=== PATIENT | female | born 1970 | race Caucasian/White ===

== ENCOUNTER 2018-10-31 05:29 | Emergency (ER) | payer BC ==
[2018-10-31 05:45] VITALS: BP 106/72
== END 2018-10-31 06:30 | disposition left against medical advice (07) ==
LOC: ER 05:29
DX: Z53.21 Procedure and treatment not carried out due to patient leaving prior to being seen by health care provider (principal)

== ENCOUNTER 2018-11-01 18:27 | Emergency (ER) | payer SELFPAY ==
--- NOTE | 2018-11-01 19:29 | EKG REPORT ---
SEVERITY:- ABNORMAL ECG - SINUS RHYTHM PROBABLE LEFT ATRIAL ABNORMALITY NONSPECIFIC INTRAVENTRICULAR CONDUCTION DELAY : Confirmed by: Dannielle Dexter MD 01-Nov-2018 19:28:44
[2018-11-01] MEDS ORDERED: ASPIRIN 81 MG TABLET, CHEWABLE PO ONE (21:12)
--- NOTE | 2018-11-01 21:15 | ER Document Report ---
ED Medical Screen (RME) - General Chief Complaint: Chest Pain Stated Complaint: CHEST PRESSURE Time Seen by Provider: 11/01/18 21:12 Notes: Patient is a otherwise healthy 47-year-old female presents the emergency department for generalized chest pressure that started this morning. patient describes it as a chest pressure over the center of her chest. Patient states she felt similar to this when she was diagnosed with bronchitis but she was diagnosed with bronchitis she had a generalized cough and congestion. Patient's denying any URI symptoms at this time. Denying any fever. Patient denies that the pressure gets better or worse with deep inspiration, coughing, movement. Patient denies any history of hypertension, hyperlipidemia, diabetes, smoking. GENERAL: Alert, interacts well. No acute distress. LUNGS: Clear to auscultation bilaterally, no wheezes, rales, or rhonchi. No respiratory distress. HEART: Regular rate and rhythm. No murmur I have greeted and performed a rapid initial assessment of this patient. A comprehensive ED assessment and evaluation of the patient, analysis of test results and completion of the medical decision making process will be conducted by additional ED providers. TRAVEL OUTSIDE OF THE [place] IN LAST 30 DAYS: No - Related Data Allergies/Adverse Reactions: Penicillins Allergy (Verified 11/01/18 18:31) Past Medical History Psychiatric Medical History: Reports: Hx Anxiety, Hx Depression Past Surgical History: Reports: Hx Tubal Ligation Physical Exam - Vital signs Vitals: Temp Pulse Resp BP Pulse Ox 98.1 F 69 18 115/69 99 11/01/18 18:41 11/01/18 18:41 11/01/18 18:41 11/01/18 18:41 11/01/18 18:41 Course - Vital Signs Vital signs: Temp Pulse Resp BP Pulse Ox 98.1 F 69 18 115/69 99 11/01/18 18:41 11/01/18 18:41 11/01/18 18:41 11/01/18 18:41 11/01/18 18:41
[2018-11-01 21:39] LABS: ABSOLUTE BASOPHILS # (AUTO) 0.1 10^3/uL (0.0-0.2); ABSOLUTE EOSINOPHILS # (AUTO) 0.1 10^3/uL (0.0-0.6); ABSOLUTE LYMPHOCYTES (AUTO) 2.3 10^3/uL (0.5-4.7); ABSOLUTE MONOCYTES (AUTO) 0.7 10^3/uL (0.1-1.4); BASOPHILS % (AUTO) 1.3 % (0-2); EOSINOPHILS % (AUTO) 0.8 % (0-6); HEMATOCRIT 40.4 % (36.0-47.0); HEMOGLOBIN 13.5 g/dL (12.0-15.5); LYMPHOCYTES % (AUTO) 31.6 % (13-45); MEAN CORPUSCULAR HEMOGLOBIN 29.9 pg (27.0-33.4); MEAN CORPUSCULAR HGB CONC 33.5 g/dL (32.0-36.0); MEAN CORPUSCULAR VOLUME 89 fl (80-97); MONOCYTES % (AUTO) 10.2 % (3-13); PLATELET COUNT 304 10^3/uL (150-450); RED BLOOD COUNT 4.52 10^6/uL (3.72-5.28); RED CELL DISTRIBUTION WIDTH 14.5 % (11.5-14.0); SEGMENTED NEUTROPHILS % (AUTO) 56.1 % (42-78); TOTAL CELLS COUNTED % (AUTO) 100 %; WHITE BLOOD COUNT 7.2 10^3/uL (4.0-10.5)
--- NOTE | 2018-11-01 21:48 | RADIOLOGY REPORT (SQ) ---
XR CHEST 1 VIEW CLINICAL STATEMENT: CP COMPARISON: None FINDINGS: Cardiomediastinal silhouette is within normal limits. There is no focal lung consolidation or pleural effusion. No evidence of pulmonary edema or pneumothorax. IMPRESSION: No acute cardiopulmonary disease.
[2018-11-01 21:58] LABS: ALANINE AMINOTRANSFERASE 21 U/L (9-52); ALBUMIN 4.4 g/dL (3.5-5.0); ALKALINE PHOSPHATASE 65 U/L (38-126); ANION GAP 11 (5-19); ASPARTATE AMINO TRANSFERASE 23 U/L (14-36); BILIRUBIN,DIRECT 0.2 mg/dL (0.0-0.4); BILIRUBIN,TOTAL 0.3 mg/dL (0.2-1.3); BLOOD UREA NITROGEN 12 mg/dL (7-20); CALCIUM 9.6 mg/dL (8.4-10.2); CARBON DIOXIDE 27 mmol/L (22-30); CHLORIDE 104 mmol/L (98-107); CREATINE KINASE 87 U/L (30-135); GLUCOSE 118 mg/dL (75-110); SODIUM 141.9 mmol/L (137-145); TOTAL PROTEIN 7.3 g/dL (6.3-8.2)
[2018-11-01 22:09] LABS: CREATINE KINASE MB 1.02 ng/mL (<4.55)
[2018-11-01 22:10] LABS: TROPONIN I < 0.012 ng/mL
[2018-11-02 00:59] LABS: APPEARANCE,URINE CLEAR; BILIRUBIN,URINE NEGATIVE (NEGATIVE); COLOR,URINE STRAW; GLUCOSE, URINE NEGATIVE (NEGATIVE); KETONES,URINE NEGATIVE (NEGATIVE); LEUKOCYTE ESTERASE,URINE NEGATIVE (NEGATIVE); NITRITE,URINE NEGATIVE (NEGATIVE); PROTEIN,URINE NEGATIVE (NEGATIVE); URINE SPECIFIC GRAVITY 1.006; UROBILINOGEN,URINE NEGATIVE mg/dL (<2.0)
--- NOTE | 2018-11-02 01:02 | ER Document Report ---
ED Cardiac - General Chief Complaint: Chest Pain Stated Complaint: CHEST PRESSURE Time Seen by Provider: 11/01/18 21:12 Notes: 47-year-old female to the emergency department chief complaint of not feeling well. Patient states that she had some achiness. Thought she may be developing bronchitis. Quit smoking 3 weeks ago. Was concerned because her mother just had open heart surgery and her father is undergoing chemotherapy did not want to be around them if she was sick. Went to the urgent care and told him that she was feeling achiness and she mentioned that she had some achiness and tightness in the chest so they did an EKG and they did not think it was normal and sent her here for further evaluation. Patient states that she has no significant chest pain she just does not feel well. Denies any other major symptoms. Denies any cough, wheeze, shortness of breath. TRAVEL OUTSIDE OF THE [place] IN LAST 30 DAYS: No - HPI Patient complains to provider of: Chest tightness - Related Data Allergies/Adverse Reactions: Penicillins Allergy (Verified 11/01/18 18:31) Past Medical History - General Information source: Patient - Social History Smoking Status: Former Smoker Cigarette use (# per day): Yes Frequency of alcohol use: None Drug Abuse: None Lives with: Family Family History: Reviewed & Not Pertinent - Medical History Medical History: Negative Psychiatric Medical History: Reports: Hx Anxiety, Hx Depression Past Surgical History: Reports: Hx Tubal Ligation Review of Systems - Review of Systems Constitutional: No symptoms reported. denies: Fever, Malaise, Weakness EENT: No symptoms reported. denies: Blurred vision, Difficulty swallowing, Mouth pain Cardiovascular: No symptoms reported. denies: Chest pain, Palpitations, Heart racing Respiratory: No symptoms reported Gastrointestinal: No symptoms reported. denies: Abdominal pain, Diarrhea, Nausea, Vomiting Genitourinary: No symptoms reported. denies: Burning, Dysuria, Discharge Female Genitourinary: No symptoms reported Musculoskeletal: No symptoms reported, Other. denies: Back pain, Joint pain Skin: No symptoms reported. denies: Dryness, Lesions - Does complain of achiness all over, Lumps, Rash Hematologic/Lymphatic: No symptoms reported. denies: Anemia, Blood clots, Easy bleeding, Easy bruising Neurological/Psychological: No symptoms reported. denies: Confusion, Weakness, Numbness Physical Exam - Vital signs Vitals: Temp Pulse Resp BP Pulse Ox 98.1 F 69 18 115/69 99 11/01/18 18:41 11/01/18 18:41 11/01/18 18:41 11/01/18 18:41 11/01/18 18:41 Interpretation: Normal - General General appearance: Appears well, Alert - HEENT Head: Normocephalic, Atraumatic Eyes: Normal Pupils: PERRL - Respiratory Respiratory status: No respiratory distress Chest status: Nontender Breath sounds: Normal Chest palpation: Normal - Cardiovascular Rhythm: Regular Heart sounds: Normal auscultation Murmur: No - Abdominal Inspection: Normal Distension: No distension Bowel sounds: Normal Tenderness: Nontender Organomegaly: No organomegaly - Back Back: Normal, Nontender - Extremities General upper extremity: Normal inspection, Nontender, Normal color, Normal ROM, Normal temperature General lower extremity: Normal inspection, Nontender, Normal color, Normal ROM, Normal temperature, Normal weight bearing. No: Marianela's sign - Neurological Neuro grossly intact: Yes Cognition: Normal Orientation: AAOx4 [place]hav[place] Coma Scale Eye Opening: Spontaneous [place] Coma Scale Verbal: Oriented Bhavana Coma Scale Motor: Obeys Commands Bhavana Coma Scale Total: 15 Speech: Normal Motor strength normal: LUE, RUE, LLE, RLE Sensory: Normal - Psychological Associated symptoms: Normal affect, Normal mood - Skin Skin Temperature: Warm Skin Moisture: Dry Skin Color: Normal Course - Re-evaluation Re-evalutation: 11/02/18 01:01 Patient is well-appearing with normal physical exam. 2 EKGs are unremarkable. She has probable left atrial abnormality with some nonspecific intraventricular conduction delay but no signs of ischemia. Troponin is negative. Afebrile. Chest x-ray unremarkable. At this time uncertain etiology of patient's symptoms but unlikely she has a major cardiac event. Her heart score is 2. At this time patient has been advised that she should follow-up with her primary care doctor. Return for any worsening symptoms or concerns. Will DC at this time in stable condition. 11/02/18 01:16 Laboratory 11/01/18 11/01/18 11/01/18 21:15 21:15 21:15 WBC 7.2 RBC 4.52 Hgb 13.5 Hct 40.4 MCV 89 MCH 29.9 MCHC 33.5 RDW 14.5 H Plt Count 304 Seg Neutrophils % 56.1 Lymphocytes % 31.6 Monocytes % 10.2 Eosinophils % 0.8 Basophils % 1.3 Absolute Neutrophils 4.0 Absolute Lymphocytes 2.3 Absolute Monocytes 0.7 Absolute Eosinophils 0.1 Absolute Basophils 0.1 Sodium 141.9 Potassium 4.0 Chloride 104 Carbon Dioxide 27 Anion Gap 11 BUN 12 Creatinine 0.62 Est GFR ( Amer) > 60 Est GFR (Non-Af Amer) > 60 Glucose 118 H Calcium 9.6 Total Bilirubin 0.3 Direct Bilirubin 0.2 Neonat Total Bilirubin Not Reportable Neonat Direct Bilirubin Not Reportable Neonat Indirect Bili Not Reportable AST 23 ALT 21 Alkaline Phosphatase 65 Creatine Kinase 87 CK-MB (CK-2) 1.02 Troponin I < 0.012 Total Protein 7.3 Albumin 4.4 Urine Color Urine Appearance Urine pH Ur Specific [place] Urine Protein Urine Glucose (UA) Urine Ketones Urine Blood Urine Nitrite Urine Bilirubin Urine Urobilinogen Ur Leukocyte Esterase Urine WBC (Auto) Urine RBC (Auto) Squamous Epi Cells Auto Urine Mucus (Auto) Urine Ascorbic Acid 11/02/18 11/02/18 00:15 00:24 WBC RBC Hgb Hct MCV MCH MCHC RDW Plt Count Seg Neutrophils % Lymphocytes % Monocytes % Eosinophils % Basophils % Absolute Neutrophils Absolute Lymphocytes Absolute Monocytes Absolute Eosinophils Absolute Basophils Sodium Potassium Chloride Carbon Dioxide Anion Gap BUN Creatinine Est GFR ( Amer) Est GFR (Non-Af Amer) Glucose Calcium Total Bilirubin Direct Bilirubin Neonat Total Bilirubin Neonat Direct Bilirubin Neonat Indirect Bili AST ALT Alkaline Phosphatase Creatine Kinase CK-MB (CK-2) Troponin I < 0.012 Total Protein Albumin Urine Color STRAW Urine Appearance CLEAR Urine pH 6.0 Ur Specific [place] 1.006 Urine Protein NEGATIVE Urine Glucose (UA) NEGATIVE Urine Ketones NEGATIVE Urine Blood LARGE H Urine Nitrite NEGATIVE Urine Bilirubin NEGATIVE Urine Urobilinogen NEGATIVE Ur Leukocyte Esterase NEGATIVE Urine WBC (Auto) 0 Urine RBC (Auto) 9 Squamous Epi Cells Auto 1 Urine Mucus (Auto) RARE Urine Ascorbic Acid NEGATIVE Chest X-Ray 11/01/18 21:12 IMPRESSION: No acute cardiopulmonary disease. - Vital Signs Vital signs: Temp Pulse Resp BP Pulse Ox 98.1 F 69 18 115/69 99 11/01/18 18:41 11/01/18 18:41 11/01/18 18:41 11/01/18 18:41 11/01/18 18:41 - Laboratory Result Diagrams: 11/01/18 21:15 11/01/18 21:15 Laboratory results interpreted by me: 11/01/18 11/01/18 11/02/18 21:15 21:15 00:24 RDW 14.5 H Glucose 118 H Urine Blood LARGE H - EKG Interpretation by Me EKG shows normal: Sinus rhythm, [place], Intervals, QRS Complexes, ST-T Waves When compared to previous EKG there are: No significant change Discharge - Discharge Clinical Impression: Myalgia Chest pain Qualifiers: Chest pain type: unspecified Qualified Code(s): R07.9 - Chest pain, unspecified Condition: Good Disposition: HOME, SELF-CARE Instructions: Myalagia (Muscle Pain) ([facility]), Chest Pain of Unclear Cause ([facility]) Additional Instructions: Your work-up today did not reveal anything significant. In the event you develop worsening chest pain please return for repeat evaluation. Follow-up information for [facility] has been provided. It may be beneficial to have an outpatient work-up done to eliminate the possibility of any cardiac issues. Forms: Return to Work Referrals: FLETCHER HONEYCUTT MD [ACTIVE STAFF] - Follow up in 3-5 days
[2018-11-02 05:18] VITALS: BP 106/70
--- NOTE | 2018-11-02 23:46 | EKG REPORT ---
SEVERITY:- ABNORMAL ECG - SINUS RHYTHM PROBABLE LEFT ATRIAL ABNORMALITY NONSPECIFIC INTRAVENTRICULAR CONDUCTION DELAY : Confirmed by: Dannielle Dexter MD 02-Nov-2018 23:45:59
== END 2018-11-02 01:37 | disposition home or self-care (01) ==
LOC: ER 18:27
DX: R07.89 Other chest pain (principal); M79.10 Myalgia, unspecified site; Z87.891 Personal history of nicotine dependence; Z88.0 Allergy status to penicillin
CPT/HCPCS: 36415; 71045; 80053; 81001; 82550; 82553; 84484; 85025; 93005; 93010; 99284